=== PATIENT | male | born 1980 | race African-American/Black ===

== ENCOUNTER 2017-01-09 16:47 | Emergency (ER) | payer SELFPAY | END 2017-01-09 17:30 | disposition home or self-care (01) | LOC: ERS 16:47 | DX: M54.5 Low back pain (principal); B20 Human immunodeficiency virus [HIV] disease; F17.210 Nicotine dependence, cigarettes, uncomplicated | CPT/HCPCS: 99283 ==

== ENCOUNTER 2017-01-11 18:06 | Emergency (ER) | payer SELFPAY ==
[2017-01-11] MEDS ORDERED: Ketorolac Tromethamine 60 MG/2 ML VIAL ONE (18:29)
== END 2017-01-11 18:52 | disposition home or self-care (01) ==
LOC: ERS 18:06
DX: M62.830 Muscle spasm of back (principal); B20 Human immunodeficiency virus [HIV] disease; F17.210 Nicotine dependence, cigarettes, uncomplicated; Z79.899 Other long term (current) drug therapy; X50.0XXA Overexertion from strenuous movement or load, initial encounter; Y99.0 Civilian activity done for income or pay
CPT/HCPCS: 96372; 99406; J1885